=== PATIENT | male | born 1940 | race Caucasian/White ===

== ENCOUNTER 2022-10-06 09:45 | Outpatient (REF) | payer MEDICARE, SELFPAY ==
--- NOTE | ~2022-10-06 | XR_ITS ---
EXAMINATION: XR LUMBOSACRAL SPINE CLINICAL INFORMATION: Lumbar disc disease. COMPARISON: None TECHNIQUE: Three views of the lumbosacral spine. FINDINGS: Mild left apical curvature of the lumbar spine with apex at L2-L3. No acute compression deformity. Mild grade 1 anterolisthesis of L4 on L5. Otherwise, anatomic alignment. Moderate to severe disc height loss and facet arthropathy from L4 through S1 with associated neural foraminal encroachment and central canal narrowing. Prominent multilevel anterior osteophytes. SI joints are symmetric. Atherosclerotic disease of the abdominal aorta. XR/XR lumbar spine 2-3V IMPRESSION: 1. No acute compression deformity. 2. Mild grade 1 anterolisthesis of L4 on L5, likely degenerative in nature. 3. Moderate to severe lumbar spondylosis from L4 through S1. If indicated, further evaluation with an MR of the lumbar spine could be helpful to assess for nerve root impingement and degree of canal narrowing.
--- NOTE | ~2022-10-06 | XR_ITS ---
EXAMINATION: XR HIP, LEFT CLINICAL INFORMATION: Arthritis. COMPARISON: None TECHNIQUE: Two views of the left hip. FINDINGS: No acute fractures or malalignment. Mild joint space narrowing with subcortical sclerosis in both hips. SI joints are symmetric. Pubic symphysis is maintained. Small calcifications adjacent to the greater trochanter of the left femur. Possible surgical clip just inferior to the right ischial tuberosity. XR/XR hip LT min 2V IMPRESSION: 1. No acute fractures or malalignment. 2. Mild degenerative osteoarthritis of both hips. 3. Calcific tendinosis adjacent to the greater trochanter of the left femur.
== END 2022-10-06 09:46 | disposition home or self-care (01) ==
LOC: HO.XRAY 09:45
PROVIDERS: Visit Provider Psychiatry & Neurology Neurology
DX: M51.9 Unspecified thoracic, thoracolumbar and lumbosacral intervertebral disc disorder (principal); M16.12 Unilateral primary osteoarthritis, left hip
CPT/HCPCS: 72100; 73502

== ENCOUNTER 2022-12-15 09:57 | Outpatient (REF) | payer MEDICARE, SELFPAY ==
--- NOTE | ~2022-12-15 | MR_ITS ---
EXAMINATION: MR LUMBAR SPINE WITHOUT CONTRAST CLINICAL INFORMATION: Lumbar disc disease. COMPARISON: Plain films of the lumbar spine 10/06/2022 which demonstrated a levoscoliosis. TECHNIQUE: MRI of the lumbar spine was obtained using routine sequences without contrast. Some images are degraded by patient motion artifact. FINDINGS: VERTEBRAL BODIES AND PARASPINAL STRUCTURES: There is a transitional vertebra at the lumbosacral junction. For the purposes of naming the vertebral body levels, the lowermost fully formed intervertebral disc will be designated L5-S1, corresponding to the description on the prior plain films. (Please see screening shot image with the labeling of the vertebral bodies). There is a 5 mm grade 1 anterolisthesis of L4 on L5. There are retrolistheses of L1 on L2, L2 on L3 and L3 on L4. There is multilevel narrowing of intervertebral disc height with loss of signal throughout the visualized thoracic and lumbar spine with relative sparing at L5-S1. There are multilevel degenerative endplate contour changes, with predominantly fatty signal which is most prominent at L2-L3, L3-L4 and L4-L5. There are Schmorl's nodes at adjacent endplates at multiple levels. Vertebral body heights are maintained and no fractures are demonstrated. There is a small focus of increased STIR signal in the left lateral sacral ala consistent with a small area of edematous signal. Overall, marrow signal is slightly heterogenous. The visualized retroperitoneal and pelvic structures are unremarkable. CONUS MEDULLARIS AND CAUDA EQUINA: Normal, terminating at the level of T12-L1. There is mild fatty signal in a non-thickened filum terminale. The cauda equina nerve roots appear normal. The lower thoracic spinal cord has normal contour and signal. SPINAL LEVELS: L1-L2: There is mild bilateral facet arthropathy. Posterior disc protrusion with mild flattening the ventral thecal sac but there is no stenosis. There is no foraminal nerve root impingement. L2-L3: There is severe bilateral facet arthropathy with right greater than left ligamentum flavum hypertrophy distorting the dorsal thecal sac. There is a broad-based posterior disc protrusion which flattens the ventral thecal sac and narrows the subarticular recesses. There is moderate to severe central stenosis. There is a right foraminal disc protrusion with impingement on the exiting right L2 nerve root. L3-L4: There is moderate to severe bilateral facet arthropathy with ligamenta flava hypertrophy. There is a broad-based posterior disc protrusion extending into the right neural foramen with impingement on the exiting right L3 nerve root. There is a small extruded component extending into the left subarticular recess and there is impingement on the traversing right L4 nerve root. There is moderate to severe central stenosis. L4-L5: There is markedly severe bilateral facet arthropathy with ligamenta flava hypertrophy. There is unroofing of the disc as a result of the anterolisthesis. There are bilateral foraminal disc protrusions, more prominent on the right with impingement on the exiting right L4 nerve root. There is marked narrowing of the bilateral subarticular recesses, and there is severe central stenosis. L5-S1: There is moderate bilateral facet arthropathy. There is a small posterior disc protrusion with minimal mass effect on the thecal sac. The neural foramina are patent bilaterally and there is no central stenosis. MR/MR lumbar spine wo con IMPRESSION: 1. There is a transitional vertebra at the lumbosacral junction. For the purposes of naming the vertebral body levels the lowermost fully formed intervertebral disc will be designated L5-S1. This should be correlated with plain films before any intervention is undertaken. 2. There is a grade 1 anterolisthesis of L4 on L5 secondary to severe facet arthropathy. There are bilateral foraminal disc protrusions, more prominent on the right with impingement on the exiting right L4 nerve root. There is marked narrowing of the subarticular recesses and there is severe central stenosis. 3. At L3-L4 there is facet arthropathy and there is a posterior disc protrusion extending into the right neural foramen with impingement on the exiting right L3 nerve root. There is a small extruded component extending into the left subarticular recess with impingement on the traversing right L4 nerve root. There is moderate to severe central stenosis. 4. At L2-L3 there is severe facet arthropathy. There is a broad-based posterior disc protrusion with narrowing of the subarticular recesses. There is moderate to severe central stenosis. A right foraminal disc protrusion impinges on the exiting right L2 nerve root.
== END 2022-12-15 09:58 | disposition home or self-care (01) ==
LOC: HO.MRI 09:57
PROVIDERS: Visit Provider Psychiatry & Neurology Neurology
DX: M51.9 Unspecified thoracic, thoracolumbar and lumbosacral intervertebral disc disorder (principal)
CPT/HCPCS: 72148

== ENCOUNTER → 2023-01-11 10:23 | Outpatient (BNVA) | payer OTHER, SELFPAY | PROVIDERS: PCP Internal Medicine; Visit Provider Nurse Practitioner Family | DX: Z13.89 Encounter for screening for other disorder (principal) ==